=== PATIENT | male | born 2000 | race Caucasian/White ===

== ENCOUNTER 2018-06-16 20:38 | Emergency (ER) | payer OTHER ==
[2018-06-16] MEDS: FLUORESCEIN OPHTH 1 MG STRIP OU (22:17)
[2018-06-16] MEDS: TETRACAINE 0.5% OPHTH SOLN 4ML OU (22:17)
== END 2018-06-16 23:26 | disposition home or self-care (01) ==
LOC: M ED 20:38
DX: S00.251A Superficial foreign body of right eyelid and periocular area, initial encounter (principal); X58.XXXA Exposure to other specified factors, initial encounter; Y92.9 Unspecified place or not applicable; Y93.89 Activity, other specified; Y99.9 Unspecified external cause status; Z72.0 Tobacco use
CPT/HCPCS: 99283